=== PATIENT | male | born 1995 | race Caucasian/White ===

== ENCOUNTER 2021-01-05 01:41 | Emergency (ER) | payer OTHER, SELFPAY ==
[2021-01-05 01:43] VITALS: BP 134/93; PULSE 65; RESP 16; TEMP 36.6; O2SAT 100; BMI 19.5
--- NOTE | 2021-01-05 02:33 | HMH.EDEYEP ---
ED Disposition Clinical Impression: UV keratitis Qualifiers: Laterality: bilateral Qualified Code(s): H16.133 - Photokeratitis, bilateral Disposition: Home, Self-Care Condition on Discharge: Good Instructions: DI for Eye Flash Burn Additional Instructions: see dr trinidad this am Referrals: Provider,Referral, [Primary Care Provider] - - Critical Care Critical Care Time: No Attestation: On 01/05/21, the high probability of a clinically significant, sudden or life threatening deterioration of the following system(s) required my full and direct attention, intervention and personal management. The time I documented below is in addition to time spent performing reported procedures but includes the following listed in this critical care notation. Medical Decision Making - Medical Records Medical records reviewed: Yes: I reviewed the patient's medical records. - Thom Inquiry Pt receiving controlled substance: No Vital Signs: 01/05/21 01:43 Temperature 97.9 F Temperature Source Oral Pulse Rate [Right] 65 Respiratory Rate 16 Blood Pressure [Right Arm] 134/93 H Blood Pressure Mean [Right Arm] 106 02 Sat by Pulse Oximetry 100 Orders (Tests/Meds): ED MEDICATIONS Discontinued Medications Generic Name Dose Route Start Last Admin Trade Name Freq PRN Reason Stop Dose Admin Acetaminophen/Codeine Phosphate 1 meseret 01/05/21 02:31 Acetaminophen 300mg W/Codeine 30mg Take Home Pack (6) PO 01/05/21 02:32 ONCE ONE Gentamicin Sulfate 1 ml 01/05/21 02:31 Gentamicin 0.3% Opth Jigna 5ml OP 01/05/21 02:32 ONCE ONE Tetracaine HCl 2 ml 01/05/21 01:57 01/05/21 02:02 Tetracaine 0.5% Opth Jigna 15ml OP 01/05/21 01:58 Not Given ONCE ONE Tetracaine HCl 2 ml 01/05/21 02:00 01/05/21 02:02 Tetracaine 0.5% Opth Jigna 15ml OP 01/05/21 02:01 2 ml ONCE ONE Administration Medical Decision Narrative: pt will see eye center this am Eye Problem HPI - General Chief complaint: Eye Problems Stated complaint: AO 01/04/21 7-3 Flash burn to eyes Time Seen by Provider: 01/05/21 02:00 Mode of Arrival: Wheelchair Source of Information: Patient, Significant Other, Medical Record Limitations: No Limitations Description of Symptoms (Recalled from ER Triage Doc. 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 and thinks he has flash burn to both eyes pt denies any blurring vision - History of Present Illness HPI Narrative: bilat eye pain after welding today - MD chief complaint: eye pain Onset (ago): hour(s) Onset description: gradual Location: both eyes Eye Symptoms: pain Place: work Mechanism: UV exposure Severity: moderate Treatments Prior to Arrival: none - Related Data Home Medications Medication Instructions Recorded Confirmed No Known Home Medications 04/29/19 01/05/21 Allergies Allergy/AdvReac Type Severity Reaction Status Date / Time No Known Allergies Allergy Verified 01/05/21 01:58 [facility] History - Hepatitis A Screen Drug use history?: No High risk sexual behaviors?: No History of sexually transmitted infection?: No Currently employed?: No Childcare worker?: No Do you have indoor plumbing?: Yes Do you have electricity?: Yes Attestation statement:: This patient has been screened for Hepatitis A risk factors. I have reviewed the patient's past medical history: Yes Other Surgeries: Yes: No Previous Surgery - Social History Smoking Status: Never smoker Tobacco Type: smokeless tobacco # Packs/Day (cigarettes): 0 Alcohol Intake: never Occupational Status: employed ROS Obtained: Yes All systems reviewed & no additional complaints - Constitutional Constitutional: Denies fever(s) - Eyes Eyes: Reports as per HPI, Reports sensitivity to light, Reports eye pain - ENT Ears, Nose, Mouth, and Throat: Denies facial pain - Cardiovascular Cardiovascular: Denies chest pain - Respiratory Respiratory: Denies cough - Gastrointestinal Gastrointes
[2021-01-05 02:40] VITALS: BP 122/69; PULSE 68; RESP 17; TEMP 36.8; O2SAT 99
== END 2021-01-05 02:44 | disposition home or self-care (01) ==
PROVIDERS: Emergency Provider Emergency Medicine
DX: H16.133 Photokeratitis, bilateral (principal); W89.8XXA Exposure to other man-made visible and ultraviolet light, initial encounter; Y92.63 Factory as the place of occurrence of the external cause; Y99.0 Civilian activity done for income or pay
CPT/HCPCS: 99281

== ENCOUNTER 2021-07-04 17:46 | Emergency (ER) | payer OTHER, SELFPAY ==
[2021-07-04 19:00] VITALS: BP 109/70; PULSE 72; RESP 18; TEMP 37; O2SAT 97; BMI 18.8
[2021-07-04 19:13] LABS: UTC Strep Screen (Rapid) Positive (Negative)
--- NOTE | 2021-07-04 19:37 | HMH.EDUTC ---
[facility] Disposition Clinical Impression: Strep throat Disposition: Home, Self-Care Condition on Discharge: Good Instructions: Strep Throat, DI for Strep Throat Additional Instructions: *Monitor Temp, Over the counter Motrin or Tylenol as directed/as needed Tylenol every 4 hours and Motrin every 6 hours (as long as your family doctor has told you that you can take it) for fever or pain. and straight to ER if unable to lower temp less than 101.0 after medication given *Warm salt water gargles may help to soothe the throat *Throat Lozenges *Warm fluids like tea with honey may help to soothe the throat *Sleep elevated *Humidifier/Vaporizer *change toothbrush and toothpaste 24-48 hours after starting to take antibiotics so you do not reinfect yourself Monitor Temp. Tylenol and/or Ibuprofen as needed. ER if fever is no less than 101 despite alternating Tylenol and Ibuprofen * Encourage fluids, water, Gatorade, powerade, pedialyte if infant/toddler/or child *Cold fluids, popsicles and ice cream may feel good on his throat Follow up IMMEDIATELY for new or worsening symptoms or no Noticeable improvement over the next 48-72 hours. 911 for difficulty breathing or swallowing Referrals: Provider,Referral, MD [Primary Care Provider] - As needed Forms: Work/School Release Medical Decision Making - Thom Inquiry Pt receiving controlled substance: No Thom was queried for this patient: No Vital Signs: 07/04/21 19:00 07/04/21 19:50 Temperature 98.6 F 98.6 F Temperature Source Oral Pulse Rate 72 Pulse Rate [Left Brachial] 72 Respiratory Rate 18 18 Blood Pressure 109/70 L Blood Pressure [Left Arm] 109/70 L Blood Pressure Mean [Left Arm] 83 Blood Pressure Source [Left Arm] Automatic Cuff Blood Pressure Position [Left Arm] Sitting 02 Sat by Pulse Oximetry 97 Oxygen Delivery Method Room Air - Lab Data Lab results reviewed: Yes: I reviewed the patient's lab results. Lab Results 07/04/21 19:13: Strep Scn Rapid Clinic Positive A Orders (Tests/Meds): ED MEDICATIONS Discontinued Medications Generic Name Dose Route Start Last Admin Trade Name Freq PRN Reason Stop Dose Admin Penicillin G Benzathine 1,200,000 unit 07/04/21 19:41 07/04/21 19:47 Penicillin G Benzathine 1,200,000 Units/2ml Syringe IM 07/04/21 19:42 1,200,000 unit ONCE ONE Administration [facility] HPI - General Stated complaint: sore throat headache nausea Time Seen by Provider: 07/04/21 19:37 Mode of Arrival: Ambulatory Source of Information: Patient Limitations: No Limitations Description of Symptoms (Recalled from Triage Doc. by RN): PATIENT C/O HEADACHE, SORE THROAT, AND STOMACH ACHE SINCE YESTERDAY HEENT Symptoms (Recalled from RN notes): Yes Resp Symptoms (Recalled from RN notes): No Skin Symptoms (Recalled from RN notes): No MS Symptoms (Recalled from RN notes): No Functional Status (Recalled from RN notes): WNL - History of Present Illness Provider Complaint: Patient state that he has been having sore throat, headache, upset stomache and over all not feeling well States that he feels like he may have strep throat so he came in to get checked - Related Data Home Medications Medication Instructions Recorded Confirmed No Known Home Medications 04/29/19 07/04/21 Allergies Allergy/AdvReac Type Severity Reaction Status Date / Time No Known Allergies Allergy Verified 01/05/21 01:58 - Worker's Comp Is this a Worker's Comp case?: No [facility] History - Hepatitis A Screen Drug use history?: No High risk sexual behaviors?: No History of sexually transmitted infection?: No Currently employed?: No Childcare worker?: No Do you have indoor plumbing?: Yes Do you have electricity?: Yes Attestation statement:: This patient has been screened for Hepatitis A risk factors. I have reviewed the patient's past medical history: Yes Other Surgeries: Yes: No Previous Surgery - Social History Smoking Status: [place]
[2021-07-04 19:50] VITALS: BP 109/70; PULSE 72; RESP 18; TEMP 37; O2SAT 97
== END 2021-07-04 20:07 | disposition home or self-care (01) ==
PROVIDERS: Emergency Provider Nurse Practitioner
DX: J02.9 Acute pharyngitis, unspecified (principal); Z88.0 Allergy status to penicillin
CPT/HCPCS: 87880; 96372; 99202; G0463; J0561

== ENCOUNTER 2021-12-05 02:01 | Emergency (ER) | payer OTHER, SELFPAY ==
[2021-12-05 02:02] VITALS: BP 122/81; PULSE 58; RESP 16; TEMP 36.4; O2SAT 100; BMI 21.7
--- NOTE | 2021-12-05 02:16 | PC.NURSE ---
EYE BOX AND MONTERO LAMP TO BEDSIDE.
--- NOTE | 2021-12-05 03:27 | HMH.EDEYEP ---
ED Disposition Clinical Impression: Welders' keratitis of both eyes Disposition: Home, Self-Care Condition on Discharge: Good Instructions: DI for Eye Flash Burn Additional Instructions: see dr amos wu - [phone] Referrals: Provider,Referral, [Primary Care Provider] - - Critical Care Critical Care Time: No Attestation: On 12/05/21, the high probability of a clinically significant, sudden or life threatening deterioration of the following system(s) required my full and direct attention, intervention and personal management. The time I documented below is in addition to time spent performing reported procedures but includes the following listed in this critical care notation. Medical Decision Making - Medical Records Medical records reviewed: Yes: I reviewed the patient's medical records. 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 work chief complaint: eye pain Onset (ago): hour(s) Onset description: gradual Location: both eyes Eye Symptoms: photophobia Place: work Mechanism: UV exposure Severity: moderate Treatments Prior to Arrival: none - Related Data Patient tetanus UTD: Yes Home Medications Medication Instructions Recorded Confirmed No Known Home Medications 04/29/19 12/05/21 Allergies Allergy/AdvReac Type Severity Reaction Status Date / Time No Known Allergies Allergy Verified 01/05/21 01:58 [facility] History - Hepatitis A Screen Attestation statement:: This patient has been screened for Hepatitis A risk factors. I have reviewed the patient's past medical history: Yes Other Surgeries: Yes: No Previous Surgery - Social History Smoking Status: Never smoker Tobacco Type: smokeless tobacco # Packs/Day (cigarettes): 0 Alcohol Intake: never Occupational Status: employed ROS Obtained: Yes All systems reviewed & no additional complaints - Constitutional Constitutional: Denies fever(s) - Eyes Eyes: Reports as per HPI, Denies change in vision, Reports sensitivity to light - ENT Ears, Nose, Mouth, and Throat: Denies sore throat - Cardiovascular Cardiovascular: Denies chest pain - Respiratory Respiratory: Denies cough - Gastrointestinal Gastrointestingal: Denies: vomiting - Genitourinary Male Genitourinary: Denies hematuria - Musculoskeletal Musculoskeletal: Denies joint pain - Integumentary/Breasts Skin/Breast: Denies rash - Neurologic Neurologic: Denies focal weakness, Denies seizure-like activity Physical Exam - General General appearance: alert - Head Head exam: normocephalic - Eye Eye exam: Present: PERRL, EOMI, other (neg fluro stain ) - ENT ENT exam: Present: mucous membranes moist - Neck Neck exam: Present: trachea midline - Respiratory Respiratory exam: Absent: respiratory distress - Cardiovascular Cardiovascular exam: Present: regular rate - Abdominal Exam Abdominal exam: Present: soft - Extremities Exam Extremities exam: Present: full ROM - Neurological Exam Neurological exam: Present: alert, CN II-XII intact - Skin Skin exam: Absent: rash
[2021-12-05 03:51] VITALS: BP 122/94; PULSE 58; RESP 16; TEMP 36.4; O2SAT 100
== END 2021-12-05 03:54 | disposition home or self-care (01) ==
PROVIDERS: Emergency Provider Emergency Medicine
DX: H16.133 Photokeratitis, bilateral (principal); W89.8XXA Exposure to other man-made visible and ultraviolet light, initial encounter; Y92.63 Factory as the place of occurrence of the external cause; Y99.0 Civilian activity done for income or pay
CPT/HCPCS: 99283

== ENCOUNTER 2022-04-15 18:49 | Emergency (ER) | payer OTHER, SELFPAY ==
[2022-04-15 19:30] VITALS: BP 124/62; PULSE 62; RESP 20; TEMP 37.1; O2SAT 99; BMI 19.5
--- NOTE | 2022-04-15 19:57 | EXP.UTC ---
Discharge Plan Disposition Patient Disposition: Home, Self-Care Condition: Good Prescriptions Prescriptions: New methocarbamol 500 mg tablet 500 mg PO TID PRN (Reason: muscle spasm) Qty: 10 0RF etodolac 200 mg capsule 200 mg PO Q8H PRN (Reason: pain) Qty: 12 0RF Referrals Follow up/Referrals: Provider,Referral, MD [Primary Care Provider] - See instructions Activity Restrictions/Add. Instructions Additional Instructions/Restrictions: *Etodolac marina 8 hours with meal as needed for pain/inflammation *Remember you had a Toradol shot in the clinic today, which is similar to Motrin do not take any tonight *Not additional anti-inflammatory like Ibuprofen motrin, aleve, advil with the above amount of Etodolac. You can still take Tylenol every 4 hours as needed if you need something else for pain *Ice 20 minutes every 2 hours for the first 48 hours after the initial injury followed by moist heat every 20 minutes 3-4 times a day to affected area *Muscle relaxer every 8 hours as needed for muscle spasms but remember, it WILL cause drowsiness You cannot take it and drive, operate machinery or care for small children. *Keep this area active, no movement leads to more stiffness, However take it easy and avoid heavy lifting pushing or pulling *Follow up with you family doctor if no improvement for further treatment Clinical Impressions Clinical Impression: Low back pain Stand Alone Forms Stand Alone Forms: Work/School Release Instructions Patient Instructions: Low Back Pain Discharge ED Provider: Kay Urias [facility] General Stated complaint: back pain Mode of Arrival: Ambulatory Source of Information: Patient Limitations: No Limitations Time Seen by Provider: 04/15/22 19:57 Description of Symptoms (Recalled from Triage Doc. by RN): PATIENT C/O LOWER BACK PAIN THAT STARTED FRIDAY. NO KNOWN INJURY HEENT Symptoms (Recalled from RN notes): No Resp Symptoms (Recalled from RN notes): No Skin Symptoms (Recalled from RN notes): No MS Symptoms (Recalled from RN notes): Yes Functional Status (Recalled from RN notes): WNL History of Present Illness Provider Complaint: Patient states that he does alot of pulling and tugging at work States that on friday he started having some pain in his lower back area that was worse with movement Denies known injury and denies falling Denies loss of control of bowel or bladder State sthat area feels tight and achy when he moves around or tries to bend or stand Denies radiation of pain Related Data Previous Rx's Medication Instructions Recorded etodolac 200 mg capsule 200 mg PO Q8H PRN pain #12 caps 04/15/22 methocarbamol 500 mg tablet 500 mg PO TID PRN muscle spasm #10 04/15/22 tabs Allergies Allergy/AdvReac Type Severity Reaction Status Date / Time No Known Allergies Allergy Verified 01/05/21 01:58 Worker's Comp Is this a Worker's Comp case?: No [facility] Medical History (Updated 04/15/22 @ 20:08 by Kay Urias APRN) No significant past medical history Social History Smoking Status: Never smoker alcohol intake: never current occupational status: employed Travel in the last 8 weeks: None ROS Obtained: Yes All systems reviewed & no additional complaints except as documented and Yes Systems reviewed as appropriate & no additional complaints except as documented Constitutional Constitutional: Reports system reviewed and no additional complaints, except as documented, Reports as per HPI and Denies fever(s) ENT Ears, Nose, Mouth, and Throat: Reports system reviewed and no additional complaints, except as documented and Reports as per HPI Cardiovascular Cardiovascular: Reports system reviewed and no additional complaints, except as documented and Reports as per HPI Respiratory Respiratory: Reports system reviewed and no additional complaints, except as documented and Reports as per HPI Gastrointestinal Ga
[2022-04-15 20:22] VITALS: BP 124/62; PULSE 62; RESP 20; TEMP 37.1; O2SAT 99
== END 2022-04-15 20:39 | disposition home or self-care (01) ==
PROVIDERS: Emergency Provider Nurse Practitioner
DX: M54.50 Low back pain, unspecified (principal); M62.838 Other muscle spasm
CPT/HCPCS: 96372; 99213; G0463

== ENCOUNTER → 2022-09-11 16:05 | Outpatient (CLI) | payer OTHER, SELFPAY ==
--- NOTE | 2022-09-11 16:10 | XR_ITS ---
FINAL REPORT CLINICAL HISTORY: abd pain for 1-2 weeks, abd burning COMPARISON: None FINDINGS: Chest: The heart and mediastinal within normal limits. The lungs are clear. There is no pneumothorax. Osseous structures are unremarkable. Abdomen: Three views of the abdomen were obtained. There is a nonobstructive bowel gas pattern. There is a moderate to large amount of retained stool. IMPRESSION: No acute cardiopulmonary process. Nonobstructive bowel gas pattern with a moderate to large amount of retained stool. Reviewed, Interpreted and Dictated by Donnie Woods III, MD Transcribed by Earnestine Forrester Authenticated and [facility]
== END ==
PROVIDERS: Visit Provider Nurse Practitioner Family
DX: R10.9 Unspecified abdominal pain (principal)
CPT/HCPCS: 74021

== ENCOUNTER 2023-08-09 10:34 | Emergency (ER) | payer BC, SELFPAY ==
[2023-08-09 10:40] VITALS: BP 119/75; PULSE 63; RESP 19; TEMP 36.7; O2SAT 99
--- NOTE | 2023-08-09 10:50 | EXP.UTC ---
Discharge Plan Disposition Patient Disposition: Home, Self-Care Condition: Good Prescriptions Prescriptions: New amoxicillin-pot clavulanate 875-125 mg Tablet 1 tab PO Q12H Qty: 20 0RF ibuprofen 600 mg tablet 600 mg PO Q6HP PRN (Reason: Moderate Pain) Qty: 20 0RF Referrals Follow up/Referrals: Provider,Referral, MD [Primary Care Provider] - See instructions Activity Restrictions/Add. Instructions Additional Instructions/Restrictions: Call Dentist and make appointment as soon as possible may take several weeks to get in Take medication as prescribed Follow up as directed Clinical Impressions Clinical Impression: Dental infection Instructions Patient Instructions: Tooth Abscess, DI for Tooth Abscess, Amoxicillin and Clavulanic Acid Discharge ED Provider: Kay Urias [facility] General Stated complaint: tooth pain Mode of Arrival: Ambulatory Source of Information: Patient Limitations: No Limitations Time Seen by Provider: 08/09/23 10:50 Description of Symptoms (Recalled from Triage Doc. by RN): PATIENT C/O ABSCESS TO TOP RIGHT TOOTH X 2 DAYS HEENT Symptoms (Recalled from RN notes): Yes Resp Symptoms (Recalled from RN notes): No Skin Symptoms (Recalled from RN notes): No MS Symptoms (Recalled from RN notes): No Functional Status (Recalled from RN notes): WNL History of Present Illness Provider Complaint: Patient states that he has several broken and decaying teeth on his right top States that for the last couple of days he has been having pain and swelling in his gums thinks it may be infected so today he came in to get it checked Related Data Previous Rx's Medication Instructions Recorded amoxicillin 875 mg-potassium 1 tab PO Q12H #20 tabs 08/09/23 clavulanate 125 mg tablet ibuprofen 600 mg tablet 600 mg PO Q6HP PRN Moderate Pain 08/09/23 #20 tabs Allergies Allergy/AdvReac Type Severity Reaction Status Date / Time No Known Allergies Allergy Verified 09/11/22 15:32 Worker's Comp Is this a Worker's Comp case?: No [facility] Disclaimer: The information contained in this section may have been updated after the patient was seen, as this information can be updated by other users. Medical History (Updated 08/09/23 @ 10:54 by Kay Urias APRN) Left shoulder strain Low back pain No significant past medical history Strep throat Tooth abscess UV keratitis Welders' keratitis of both eyes Surgical History (Updated 08/09/23 @ 10:50 by Francia Richard RN) History of tonsillectomy Social History Smoking Status: Never smoker alcohol intake: never current occupational status: employed Travel in the last 8 weeks: None ROS Obtained: Yes All systems reviewed & no additional complaints except as documented and Yes Systems reviewed as appropriate & no additional complaints except as documented ENT Ears, Nose, Mouth, and Throat: Reports system reviewed and no additional complaints, except as documented, Reports as per HPI and Reports dental pain Cardiovascular Cardiovascular: Reports system reviewed and no additional complaints, except as documented and Reports as per HPI Respiratory Respiratory: Reports system reviewed and no additional complaints, except as documented and Reports as per HPI Gastrointestinal Gastrointestingal: Reports system reviewed and no additional complaints, except as documented and as per HPI Musculoskeletal Musculoskeletal: Reports system reviewed and no additional complaints, except as documented and Reports as per HPI Physical Exam General General appearance: alert and in no apparent distress ENT ENT exam: Present mucous membranes moist Expanded ENT Exam Teeth exam: Present dental caries, fractured tooth # and gingival swelling Respiratory Respiratory exam: Present normal lung sounds bilaterally; Absent respiratory distress or wheezes Cardiovascular Cardiovascular exam: Present regular rate, normal rhythm and normal heart sounds Neurological Exam Neurological exam: Present alert, oriented X3 and normal gait Medical Decision Making Thom Inquiry Pt receiving controlled substance: No Thom was queried for this patient: No Vital Signs: 08/09/23 10:40 Temperature 98.0 F Temperature Source Oral Pulse Rate [Left Brachial] 63 Respiratory Rate 19 Blood Pressure [Left Arm] 119/75 Blood Pressure Mean [Left Arm] 89 Blood Pressure Source [Left Arm] Automatic Cuff Blood Pressure Position [Left Arm] Sitting 02 Sat by Pulse Oximetry 99 Oxygen Delivery Method Room Air
[2023-08-09 10:54] VITALS: BP 119/75; PULSE 63; RESP 19; TEMP 36.7; O2SAT 99
== END 2023-08-09 10:56 | disposition home or self-care (01) ==
PROVIDERS: Emergency Provider Nurse Practitioner
DX: K04.7 Periapical abscess without sinus (principal)
CPT/HCPCS: 99212; 99214; G0463

== ENCOUNTER 2023-08-19 00:54 | Emergency (ER) | payer BC, SELFPAY ==
[2023-08-19 01:01] VITALS: BP 120/79; PULSE 63; RESP 17; TEMP 36.8; O2SAT 98; BMI 19.5
[2023-08-19] MEDS: LIDOCAINE 2% VISCOUS SOL 15ML UDC 15 ML PO (01:12)
[2023-08-19] MEDS: TETRACAINE/BENZOCAINE/BUTAMBEN 56 GM SPRAY TP (01:13)
--- NOTE | 2023-08-19 01:24 | HMH.EDGENADL ---
Discharge Plan Disposition Patient Disposition: Home, Self-Care Condition: Good Prescriptions Prescriptions: New clindamycin HCl 150 mg capsule 450 mg PO TID 7 Days Qty: 63 0RF No Action amoxicillin-pot clavulanate 875-125 mg Tablet 1 tab PO Q12H Qty: 20 0RF ibuprofen 600 mg tablet 600 mg PO Q6HP PRN (Reason: Moderate Pain) Qty: 20 0RF Referrals Follow up/Referrals: Provider,Referral, MD [Primary Care Provider] - See instructions Activity Restrictions/Add. Instructions Additional Instructions/Restrictions: You were evaluated in the ER for dental pain. Stop taking the amoxicillin antibiotic and start taking the clindamycin that was prescribed. Use the provided dental balls if needed for pain. Do not eat or drink with these in, do not sleep with these in. Once you feel the numbing effects of the dental balls, please remove them. Please make an appointment with a dentist to soon as possible. As discussed, in [place] has a walk-in dental clinic for dental pain if you are unable to get in anywhere else. Their information is below. dental clinic: Clinic registration is open?7:45 - 10:30 a.m., Friday through Friday. Patients are seen on a first-come, first-served basis and may experience wait times. Services are only available for a select number of patients each day. Their clinic is closed on August 20, August 22, August 27, August 28 You can find their clinic on [employer] by searching dental urgent care. Continue taking the previously prescribed ibuprofen as well. Make an appointment with your primary care physician for reevaluation in a few days. Return to the ER with any new, worsening, or otherwise concerning symptoms. Clinical Impressions Clinical Impression: Dental infection, Dental caries, Fracture of tooth Discharge ED Provider: Sintia Soni General Adult [facility] General Chief complaint: Dental/Oral Stated complaint: tooth pain Time Seen by Provider: 08/19/23 00:58 Mode of Arrival: Family Vehicle Source of Information: Patient Limitations: No Limitations Description of Symptoms (Recalled from ER Triage Doc. by RN): 28 yo male presents with CC of right side dental pain. Patient is being treated for right side dental pain and finishing amoxicillin and ibuprofen previously prescribed. Afebrile. Utilizing tylenol at home as well, mouth wash, not getting any relief. trying to see dentist tomorrow. History of Present Illness HPI narrative: This otherwise healthy 28-year-old male presents to the ER with concerns of right-sided dental pain. He has been treated by the urgent care for similar complaints. He is trying to get into a dentist tomorrow but has not seen a dentist in a long time. He knows he has multiple fractured teeth as well as dental cavities. He states he has been taking the previously prescribed Augmentin and ibuprofen as directed but started having worsening pain again tonight. He denies any difficulty swallowing, swelling of the floor of the mouth, difficulty breathing, fevers, or other associated symptoms at this time. Related Data Previous Rx's Medication Instructions Recorded amoxicillin 875 mg-potassium 1 tab PO Q12H #20 tabs 08/09/23 clavulanate 125 mg tablet ibuprofen 600 mg tablet 600 mg PO Q6HP PRN Moderate Pain 08/09/23 #20 tabs clindamycin HCl 150 mg capsule 450 mg PO TID 7 days #63 caps 08/19/23 Allergies Allergy/AdvReac Type Severity Reaction Status Date / Time No Known Allergies Allergy Verified 09/11/22 15:32 [facility] Disclaimer: The information contained in this section may have been updated after the patient was seen, as this information can be updated by other users. 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 Surgical History (Updated 08/09/23 @ 10:50 by Francia Richard RN) History of tonsillectomy Social History Smoking Status: Unknown if ever smoked alcohol intake: never current occupational status: employed Travel in the last 8 weeks: None ROS Obtained: Yes All systems reviewed & no additional complaints except as documented Constitutional Constitutional: Denies chills, Denies fever(s), Denies headache(s) and Denies weakness Eyes Eyes: Denies change in vision ENT Ears, Nose, Mouth, and Throat: Reports dental pain, Denies dizziness, Denies dysphagia, Denies headache(s), Denies nasal congestion, Denies sore throat, Denies throat swelling and Denies tongue swelling Cardiovascular Cardiovascular: Denies chest pain, Denies dyspnea and Denies leg edema Respiratory Respiratory: Denies cough and Denies dyspnea Gastrointestinal Gastrointestingal: Denies constipation, diarrhea, dysphagia, nausea or vomiting Genitourinary Male Genitourinary: Denies difficulty urinating Musculoskeletal Musculoskeletal: Denies arthralgias, Denies myalgias, Denies numbness and Denies tingling Integumentary/Breasts Skin/Breast: Denies change in pigmentation Neurologic Neurologic: Denies dizziness, Denies headache(s), Denies numbness, Denies tingling and Denies weakness Allergic/Immunologic Allergic/Immunologic: Denies throat swelling and Denies tongue swelling Physical Exam General General appearance: alert and in no apparent distress Head Head exam: atraumatic and normocephalic Eye Eye exam: Present PERRL and EOMI ENT ENT exam: Present mucous membranes moist and other (Right-sided maxillary and mandibular gingival swelling and erythema. No findings of abscess. Multiple fractured teeth, dental caries, poor dentition, no findings of submandibular swelling or erythema, no stridor, no elevation of the tongue) Neck Neck exam: Present normal inspection and full ROM; Absent lymphadenopathy Chest Chest inspection: Present symmetric chest wall rise Respiratory Respiratory exam: Absent respiratory distress or stridor Cardiovascular Cardiovascular exam: Present regular rate and normal rhythm Extremities Exam Extremities exam: Present full ROM Neurological Exam Neurological exam: Present alert and oriented X3; Absent motor sensory deficit Psychiatric Psychiatric exam: Present normal affect and normal mood Skin Skin exam: Present warm and dry Medical Decision Making Thom Inquiry Pt receiving controlled substance: No Vital Signs: 08/19/23 01:01 Temperature 98.2 F Temperature Source Oral Pulse Rate [Right Brachial] 63 Respiratory Rate 17 Blood Pressure [Right Arm] 120/79 Blood Pressure Mean [Right Arm] 92 Blood Pressure Source [Right Arm] Automatic Cuff Blood Pressure Position [Right Arm] Sitting 02 Sat by Pulse Oximetry 98 Oxygen Delivery Method Room Air Orders (Tests/Meds): ED MEDICATIONS Generic Name Dose Route Start Last Admin Trade Name Freq PRN Reason Stop Dose Admin Oxycodone HCl 5 mg 08/19/23 01:18 Oxycodone 5mg Immediate Release Tablet PO 08/19/23 01:19 Q4HP ONE Discontinued Medications Generic Name Dose Route Start Last Admin Trade Name Freq PRN Reason Stop Dose Admin Benzocaine/Butamben/Tetracaine HCl 1 gm 08/19/23 01:04 08/19/23 01:13 Tetracaine/Benzocaine/Butamben 56 Gm [place] TP 08/19/23 01:05 1 gm ONCE ONE Administration Lidocaine HCl 15 ml 08/19/23 01:04 08/19/23 01:12 Lidocaine 2% Viscous Jigna 15ml Udc PO 08/19/23 01:05 15 ml ONCE ONE Administration Medical Decision Narrative: In summary this otherwise healthy 28-year-old male presents to the ER with concerns of dental pain. Review of recent records demonstrates patient was seen in the urgent care and prescribed Augmentin and ibuprofen. He has been taking these as directed. Patient has right-sided upper and lower dental pain. On evaluation patient is hemodynamically stable, afebrile, he has multiple dental fractures, dental caries, poor dentition. He has gingival inflammation without obvious abscess. No swelling under the jaw, no erythema, no findings of Ludewig's angina though this was on my differential. Other differential included dental abscess, other dental infection, fractured tooth. I reviewed patient's prescriptions and instructed him to stop taking the previously prescribed Augmentin and instructed him to start taking clindamycin given he still has findings of infection with swollen, erythematous gingiva. I also gave him information on the walk-in clinic for dentistry if he is unable to make any other appointments with a dentist in this area. Patient received 1 dose of oral oxycodone in the ER for acute pain management. He will not be prescribed any narcotics. He did receive dental balls and was given instructions on further use of these. Patient was given instructions on symptomatic management, follow up instructions, and return precautions for the emergency department. Patient indicated understanding and was discharged in stable condition. Critical Care Critical Care Time Critical Care Time: No
[2023-08-19] MEDS: OXYCODONE 5MG IMMEDIATE RELEASE TABLET 5 MG PO (01:30)
[2023-08-19 01:33] VITALS: BP 138/71; PULSE 77; RESP 18; TEMP 36.8; O2SAT 97
== END 2023-08-19 01:34 | disposition home or self-care (01) ==
PROVIDERS: Emergency Provider Emergency Medicine
DX: S02.5XXA Fracture of tooth (traumatic), initial encounter for closed fracture (principal); G50.1 Atypical facial pain; X58.XXXA Exposure to other specified factors, initial encounter
CPT/HCPCS: 99283

== ENCOUNTER 2023-11-10 19:10 | Emergency (ER) | payer BC, SELFPAY ==
[2023-11-10] VITALS (7 sets, daily range): BP systolic 120–140; BP diastolic 75–85; PULSE 77–138; RESP 11–18; TEMP 36.6; O2SAT 98–100; BMI 19.5
--- NOTE | 2023-11-10 19:10 | ECG_ITS ---
APPROVED REPORT Exam: Resting ECG HR:118 bpm ECG Measurements Heart Rate 118 AXES QRSd 99 QRS 82 QT 407 T 81 QTc 477 Conclusion sinus tachycardia POSSIBLE RIGHT VENTRICULAR CONDUCTION DELAY [RSR (QR) IN V1/V2] NONSPECIFIC T-WAVE ABNORMALITY Electronically signed by : TYRONE EDOUARD, 11/10/2023 23:55:42
--- NOTE | 2023-11-10 19:15 | XR_ITS ---
PROCEDURE INFORMATION: Exam: XR Chest Exam date and time: 11/10/2023 7:28 PM Age: 28 years old Clinical indication: Shortness of breath; Additional info: Palpitations/soa TECHNIQUE: Imaging protocol: Radiologic exam of the chest. Views: 1 view. COMPARISON: No relevant prior studies available. FINDINGS: Lungs: Unremarkable. No consolidation. Pleural spaces: Unremarkable. No pleural effusion. No pneumothorax. Heart/Mediastinum: Unremarkable. No cardiomegaly. Bones/joints: Unremarkable. IMPRESSION: No acute findings.
[2023-11-10 19:25] LABS: Basophils # 0.1 K/mm3 (0-0.2); Eosinophils # 0.5 K/mm3 (0.0-0.4); Eosinophils % 3.5 % (0.1-12.0); Hematocrit 44.5 % (42.0-52.0); Lymphocytes # 3.1 K/mm3 (0.7-4.5); Lymphocytes % 23.6 % (10-50); Mean Corpuscular HGB Conc 33.6 g/dL (31.8-35.4); Mean Corpuscular Hemoglobin 29.8 pg (27.0-31.2); Mean Corpuscular Volume 88.6 fl (80-94); Mean Platelet Volume 8.3 fl (7.4-10.4); Monocytes # 0.7 K/mm3 (0.1-1.0); Monocytes % 5.1 % (1.7-9.3); Neutrophils # 8.7 K/mm3 (1.8-7.8); Neutrophils % 66.8 % (37.0-80.0); Platelet Count 350 K/mm3 (142-424); Red Blood Count 5.02 M/mm3 (4.60-6.20); Red Cell Distribution Width 13.2 % (11.5-17.5); White Blood Count 12.9 K/mm3 (4.8-10.8)
--- NOTE | 2023-11-10 19:28 | ED_ITS ---
Discharge Plan Disposition Patient Disposition: Home, Self-Care Condition: Good Prescriptions Prescriptions: New hydroxyzine HCl 25 mg tablet 25 mg PO Q8H PRN (Reason: panic attack(s)) Qty: 20 0RF No Action clindamycin HCl 150 mg capsule 450 mg PO TID 7 Days Qty: 63 0RF amoxicillin-pot clavulanate 875-125 mg Tablet 1 tab PO Q12H Qty: 20 0RF ibuprofen 600 mg tablet 600 mg PO Q6HP PRN (Reason: Moderate Pain) Qty: 20 0RF Referrals Follow up/Referrals: Provider,MD Renee [Primary Care Provider] - See instructions Demetrius Shah MD [Staff Physician] - See instructions Activity Restrictions/Add. Instructions Additional Instructions/Restrictions: You were evaluated in the emergency department today. Please follow-up closely with a primary care provider. Make sure that you are staying hydrated. I prescribed you hydroxyzine to take as needed for anxiety/panic attacks. Return to the emergency department for new or worsening symptoms. Clinical Impressions Clinical Impression: Anxiety, Palpitations, Hypomagnesemia, Hypokalemia Instructions Patient Instructions: DI for Anxiety -- Adult, DI for Palpitations Discharge ED Provider: Love Valentin HPI General Chief Complaint: Chest Pain Stated Complaint: Chest pain Time Seen by Provider: 11/10/23 19:12 Mode of Arrival: Ambulatory Source of Information: Patient Limitations: No Limitations Description of Symptoms (Recalled from ER Triage Doc. by RN): pt presents to ed with complaints of heart racing lasting for the past 15 mins states it is hard to breath and that he has nausea. Pt states this has been going on and off for the past week. History of Present Illness HPI narrative: This patient is a 28-year-old male presenting to the emergency department for evaluation with concern for palpitations. He states that this is intermittently been going on. He had an initial episode Friday 6 days ago, at which point he felt palpitations, shortness of breath, and nausea. This had resolved, but it started again 15 minutes ago. He does state that he has been dealing with a lot of anxiety. He denies any fevers, chills, chest pain, abdominal pain, vomiting, changes in bowel movements, or other concerns. He denies any changes in oral intake, alcohol use, changes in activity, or changes in caffeine use. He notes he has been staying hydrated. I did review patient's medical records and noted that he has been seen a few times back in July for dental infection, which she states he never followed up with a dentist for. He states he has been doing okay without issues in his mouth, however. Related Data Previous Rx's Medication Instructions Recorded amoxicillin 875 mg-potassium 1 tab PO Q12H #20 tabs 08/09/23 clavulanate 125 mg tablet ibuprofen 600 mg tablet 600 mg PO Q6HP PRN Moderate Pain 08/09/23 #20 tabs clindamycin HCl 150 mg capsule 450 mg (3 x 150 mg) PO TID 7 days 08/19/23 #63 caps hydroxyzine HCl 25 mg tablet 25 mg PO Q8H PRN panic attack(s) 11/10/23 #20 tabs Allergies Allergy/AdvReac Type Severity Reaction Status Date / Time No Known Allergies Allergy Verified 09/11/22 15:32 [facility] Disclaimer: The information contained in this section may have been updated after the patient was seen, as this information can be updated by other users. Medical History Low back pain No significant past medical history Welders' keratitis of both eyes Strep throat UV keratitis Left shoulder strain Tooth abscess Surgical History History of tonsillectomy Social History Smoking Status: Never smoker alcohol intake: never current occupational status: employed Travel in the last 8 weeks: None ROS Obtained: Yes All systems reviewed & no additional complaints except as documented Physical Exam General General appearance: alert and in no apparent distress Comment: Well-appearing Head Head exam: atraumatic and normocephalic Eye Eye exam: Present normal appearance, PERRL and EOMI ENT ENT exam: Present normal exam, normal oropharynx, mucous membranes moist and normal external ear exam Neck Neck exam: Present normal inspection, full ROM and trachea midline; Absent tenderness Chest Chest inspection: Present normal inspection and symmetric chest wall rise; Absent tenderness Respiratory Respiratory exam: Present normal lung sounds bilaterally; Absent respiratory distress, wheezes, stridor or accessory muscle use Cardiovascular Cardiovascular exam: Present normal rhythm, tachycardia and normal heart sounds; Absent systolic murmur or diastolic murmur Abdominal Exam Abdominal exam: Present soft; Absent distention, tenderness, guarding, rebound or rigidity Extremities Exam Extremities exam: Present normal inspection, full ROM and normal capillary refill; Absent tenderness or edema Back Exam Back exam: Present normal inspection and full ROM; Absent tenderness Neurological Exam Neurological exam: Present alert, oriented X3, CN II-XII intact and normal gait; Absent motor sensory deficit Psychiatric Psychiatric exam: Present normal affect and normal mood Skin Skin exam: Present warm and dry HEART Score HEART Score HEART Score assessment performed?: Yes History (anamnesis): Slightly suspicious ECG: Non-specific disturbance Age: <45 years Risk factors: No known risk factors Troponin: </= normal limit HEART Score: 1 Procedures Limited Ultrasound Findings:: Limited cardiac ultrasound Indication: Palpitations Identified cardiac views: [-Cardiac parasternal long axis] [-Cardiac parasternal short axis] [-Cardiac apical four-chamber] [-Cardiac subxiphoid] Findings: [-Cardiac activity present -Gross wall motion normal -Pericardial effusion absent -Right heart strain absent] Impression: -[From above] Images [were saved] to permanent archive The study [was] technically adequate CPT: 72109 This study was performed by me, and I personally interpreted all images/videos. Based on my clinical judgement, these images were [adequate] and [did not] necessitate further imaging. Critical Care Critical Care Time Critical Care Time: No Medical Decision Making Medical Records Medical records reviewed: Yes I reviewed the patient's medical records. Thom Inquiry Pt receiving controlled substance: No Vital Signs Vital Signs: 11/10/23 19:13 11/10/23 19:30 11/10/23 19:57 Temperature 97.8 F Temperature Source Oral Pulse Rate 86 138 H Pulse Rate [Right Brachial] 125 H Respiratory Rate 18 14 11 L Blood Pressure 123/76 140/75 Blood Pressure [Right Arm] 137/85 Blood Pressure Mean 90 93 Blood Pressure Mean [Right Arm] 102 Blood Pressure Source [Right Arm] Automatic Cuff Blood Pressure Position 02 Sat by Pulse Oximetry 100 100 100 Oxygen Delivery Method Nasal Cannula Nasal Cannula 11/10/23 20:00 11/10/23 20:30 11/10/23 21:00 Temperature Temperature Source Pulse Rate 113 H 91 H 102 H Pulse Rate [Right Brachial] Respiratory Rate 15 14 15 Blood Pressure 131/82 124/77 128/80 Blood Pressure [Right Arm] Blood Pressure Mean 92 87 90 Blood Pressure Mean [Right Arm] Blood Pressure Source [Right Arm] Blood Pressure Position 02 Sat by Pulse Oximetry 100 99 100 Oxygen Delivery Method Nasal Cannula Room Air Room Air 11/10/23 21:35 Temperature 98 F Temperature Source Oral Pulse Rate 77 Pulse Rate [Right Brachial] Respiratory Rate 16 Blood Pressure 120/77 Blood Pressure [Right Arm] Blood Pressure Mean Blood Pressure Mean [Right Arm] Blood Pressure Source [Right Arm] Blood Pressure Position Sitting 02 Sat by Pulse Oximetry Oxygen Delivery Method Room Air Lab Data Labs: Lab Results 11/10/23 19:15: WBC 12.9 H, RBC 5.02, Hgb 15.0, Hct 44.5, MCV 88.6, MCH 29.8, MCHC 33.6, RDW 13.2, Plt Count 350, MPV 8.3, Neut % (Auto) 66.8, Lymph % (Auto) 23.6, [place] % (Auto) 5.1, Eos % (Auto) 3.5, Baso % (Auto) 1.0, Neut # (Auto) 8.7 H, Lymph # (Auto) 3.1, [place] # (Auto) 0.7, Eos # (Auto) 0.5 H, Baso # (Auto) 0.1, ESR 5, D-Dimer < 0.25, Sodium 141, Potassium 3.0 L, Chloride 105, Carbon Dioxide 24, Anion Gap 15.0, BUN 19, Creatinine 0.80, Estimated Creat Clear 144, Estimated GFR 117, Est GFR ( Amer) 141, Glucose 146 H, Calcium 10.0, M agnesium 1.5 L, Total Bilirubin 1.2, AST 43, ALT 46, Alkaline Phosphatase 53, Troponin I < 0.01, C-Reactive Protein 0.4, NT-Pro-B Natriuret Pep < 20.0, Total Protein 8.2, Albumin 5.1 H, Globulin 3.1, Albumin/Globulin Ratio 1.6 11/10/23 19:58: VBG pH 7.43 H, VBG pCO2 33.8 L, VBG pO2 43.5 H, VBG HCO3 21.7 L, VBG Total CO2 22.8 L, VBG O2 Saturation 82.5 H, VBG Base Excess -2.6 L, VBG Lactic Acid 2.4 H 11/10/23 19:15 11/10/23 19:15 Response Orders (Tests/Meds): ED MEDICATIONS Discontinued Medications Generic Name Dose Route Start Last Admin Trade Name Angie PRN Reason Stop Dose Admin Hydroxyzine Pamoate 25 mg 11/10/23 20:02 11/10/23 20:06 Hydroxyzine Pamoate 25mg Capsule PO 11/10/23 20:03 25 mg ONCE ONE Administration Lactated Ringer's 1,000 mls @ 999 mls/hr 11/10/23 19:36 11/10/23 20:00 Lactated Ringer's 1000 Ml Bag IV 11/10/23 20:36 999 mls/hr .Q1H1M ONE Administration Magnesium Sulfate 2 gm in 50 mls @ 50 mls/hr 11/10/23 19:59 11/10/23 20:06 Magnesium Sulfate 2gm/50ml Premix IV 11/10/23 20:58 50 mls/hr ONCE ONE Administration Potassium Chloride 40 meq 11/10/23 19:59 11/10/23 20:14 Potassium Chloride 20meq Tab PO 11/10/23 20:00 Not Given ONCE ONE Potassium Chloride 40 meq 11/10/23 20:18 11/10/23 20:22 Potassium Chloride 20meq/15ml Udc PO 11/10/23 20:19 40 meq ONCE ONE Administration ORDERS Category Date Time Status POCUS Point of Care (ER Only) Stat Exams 11/10/23 19:15 Completed XR chest portable Stat Exams 11/10/23 19:15 Completed C-Reactive Protein Stat Lab 11/10/23 19:15 Completed Complete Blood Count Auto Diff Stat Lab 11/10/23 19:15 Completed Comprehensive Metabolic Panel Stat Lab 11/10/23 19:15 Completed D-Dimer Stat Lab 11/10/23 19:15 Completed Erythrocyte Sedimentation Rate Stat Lab 11/10/23 19:15 Completed Magnesium Stat Lab 11/10/23 19:15 Completed NT Pro Brain Natriuretic Pep. Stat Lab 11/10/23 19:15 Completed Troponin I Stat Lab 11/10/23 19:15 Completed Blood Culture Stat Micro 11/10/23 19:42 Received VBG [Venous Blood Gas] Stat RT 11/10/23 19:58 Completed ECG Data Tracing #1: Attestation: I reviewed this ECG and interpreted as documented below: ECG Narrative: Sinus tachycardia with a ventricular rate of 118 bpm. Right ventricular conduction delay. ECG initial impression date: 11/10/23 ECG initial impression time: 19:12 Tracing #2: Attestation: I reviewed this ECG and interpreted as documented below: ECG Narrative: Sinus tachycardia with a ventricular rate of 122 bpm. Incomplete right bundle branch block. Nonspecific ST/T wave changes unchanged from prior EKG without acute STEMI. ECG initial impression date: 11/10/23 ECG initial impression time: 20:02 MDM Narrative Medical Decision Narrative: In summary, this patient is a 28-year-old male presenting to the Emergency Department for evaluation of intermittent episodes of palpitations, anxiety, and nausea. Differential diagnoses considered include but are not limited to ACS, dysrhythmia, PE, pericarditis, myocarditis, endocarditis. Ruling out the most morbid conditions drove assessment. It should be noted patient's history includes poor dentition which may or may not be at goal therapy. This complicates all aspects of care by increasing patient's risk for morbidity. On exam, the patient is nontoxic-appearing. He is afebrile. He is mildly tachycardic, but otherwise vitals are reassuring. He is low risk for PE but cannot use PERC to exclude given his tachycardia. Workup included CBC, CMP, ESR, CRP, D-dimer, troponin, BNP, VBG, chest x-ray, and EKG. He was given a bolus of IV fluids. EKG obtained is reassuring with the exception of sinus tachycardia. Bedside cardiac ultrasound was also reassuring without any obvious acutely concerning abnormalities. I independently interpreted x-ray prior to the radiologist read and noted no acute focal consolidation. Please see their read for final interpretation. Labs were obtained that demonstrated very mild leukocytosis, which is nonspecific. Inflammatory markers are negative. D-dimer is also negative, so I do not feel that further workup for PE is indicated. Troponin is negative.. Patient did become more anxious and subsequently his heart rate went up again. Repeat EKG was obtained that also demonstrated sinus tachycardia. He was given hydroxyzine for anxiety, and with this, his heart rate did come down. He was found to have hypokalemia as well as hypomagnesemia. Hypokalemia could be transient shift related to panic attack and respiratory alkalosis, however patient was given oral potassium as well as IV magnesium replacement nonetheless because this could be contributing to palpitations and could be triggering his anxiety. Ultimately, patient has a low heart score with reassuring workup. I doubt infectious pathology at this time, and I feel symptoms are likely manifestations of anxiety/panic. I prescribed hydroxyzine and gave him instructions for very close outpatient follow-up and strict return precautions. Patient was discharged after all questions were answered.
[2023-11-10 19:33] LABS: Alanine Aminotransferase 46 U/L (12-78); Albumin Level 5.1 g/dl (3.5-5.0); Albumin/Globulin Ratio 1.6 (1.1-1.8); Alkaline Phosphatase 53 U/L (38-126); Aspartate Amino Transferase 43 U/L (17-59); Bilirubin,Total 1.2 mg/dl (0.2-1.3); Blood Urea Nitrogen 19 mg/dl (9-20); Carbon Dioxide 24 mmol/L (22.0-30.0); Chloride 105 mmol/L (98-107); Creatinine Clearance Estimated 144 mL/min (50-200); Estimated Glomerular Filt Rate 117 ml/min (>60); GFR (African American) 141 ML/MIN (>60); Globulin 3.1 g/dL (1.3-3.2); Glucose 146 mg/dl (74-100); Magnesium 1.5 mg/dl (1.6-2.3); Sodium 141 mmol/L (136-145); Total Protein,Serum 8.2 g/dl (6.3-8.2)
[2023-11-10 19:38] LABS: D-Dimer < 0.25 ug/mL (0.0-0.5)
[2023-11-10 19:39] LABS: C-Reactive Protein 0.4 mg/L (0-4)
--- NOTE | 2023-11-10 19:44 | PC.NURSE ---
i concur with SN assessment
[2023-11-10 19:48] LABS: NT Pro Brain Natriuretic Pep. < 20.0 pg/mL (0-125); Troponin I < 0.01 ng/ml (0.00-0.034)
--- NOTE | 2023-11-10 19:49 | PC.NURSE ---
Mira from the lab called a Critical lab value for the pt. Potassium level at 3.0. and RN notified. CR
[2023-11-10 19:54] LABS: Erythrocyte Sedimentation Rate 5 mm/hr (0-15)
[2023-11-10] MEDS: LACTATED RINGERS 1000ML 1,000 ML 999 ML IV (20:00)
--- NOTE | 2023-11-10 20:00 | ECG_ITS ---
APPROVED REPORT Exam: Resting ECG HR:122 bpm ECG Measurements Heart Rate 122 AXES OR 190 P 82 QRSd 110 QRS 87 QT 436 T 85 QTc 508 Conclusion SINUS TACHYCARDIA INCOMPLETE RIGHT BUNDLE BRANCH BLOCK [90+ ms QRS DURATION, TERMINAL R IN V1/V2, 40+ ms S IN I/aVL/V4/V5/V6] Electronically signed by : TYRONE EDOUARD, 11/10/2023 23:54:16
[2023-11-10] MEDS: hydrOXYzine pamoate 25MG CAPSULE 25 MG PO (20:06)
[2023-11-10] MEDS: MAGNESIUM SULFATE IN WATER 2 GM/50 ML PIGGYBACK IV (20:06)
[2023-11-10 20:09] LABS: VBG Base Excess -2.6 mmol/L (-2.4-2.3); VBG HCO3 21.7 mmol/L (23-30); VBG Oxygen Saturation 82.5 % (50-70); VBG PCO2 33.8 mmol/L (35-51); VBG PH 7.43 mmol/L (7.31-7.41); VBG PO2 43.5 mmol/L (28-40); VBG Total CO2 22.8 mmol/L (23-27)
[2023-11-10 20:11] LABS: Lactate Venous 2.4 mmol/L (0.4-2.0)
[2023-11-10] MEDS: POTASSIUM CHLORIDE 20MEQ/15ML UDC 40 MEQ PO (20:22)
== END 2023-11-10 21:40 | disposition home or self-care (01) ==
PROVIDERS: Emergency Provider Emergency Medicine
DX: E87.6 Hypokalemia (principal); R00.0 Tachycardia, unspecified; E83.42 Hypomagnesemia; F41.9 Anxiety disorder, unspecified
CPT/HCPCS: 71045; 80053; 82803; 83735; 83880; 84484; 85025; 85378; 85651; 86140; 87040; 93005; 96365; 99285; J3475

== ENCOUNTER 2023-12-03 17:30 | Emergency (ER) | payer BC, SELFPAY ==
[2023-12-03 17:40] VITALS: BP 108/75; PULSE 60; RESP 20; TEMP 36.7; O2SAT 96; BMI 19.5
--- NOTE | 2023-12-03 17:58 | EXP.UTC ---
Discharge Plan Disposition Patient Disposition: Home, Self-Care Condition: Good Prescriptions Prescriptions: New ondansetron 4 mg tablet,disintegrating 4 mg PO Q12 PRN (Reason: nausea and vomiting) Qty: 6 0RF No Action venlafaxine 37.5 mg capsule,extended release 24hr 1 mg PO DAILY Patient Comments: TAKE ONE CAPSULE BY MOUTH EVERY DAY --TAKE WITH FOOD-- sertraline 50 mg tablet 50 mg PO DAILY Patient Comments: TAKE ONE TABLET BY MOUTH EVERY DAY Referrals Follow up/Referrals: Sebastian Chisholm MD [Primary Care Provider] - See instructions Activity Restrictions/Add. Instructions Additional Instructions/Restrictions: Drink extra fluids with and between meals. If you have difficulty drinking, try very small amounts of water or suck on ice chips. ? Avoid fruit juices, as these do not replace minerals and can actually increase diarrhea. ? Children and adults can use sports drinks to replenish electrolytes. Younger children and infants should use products formulated for children, like oral rehydration solutions. ? Eat food in small amounts and let your stomach recover. ? Get lots of rest. You may feel tired or weak. ? No greasy or fried foods for the next 24-48 hours BRAT diet Bananas Rice Apples and [place] ? Make sure to drink plenty of liquids ? Return if needed ? Straight to ER if any life threatening symptoms ? Zofran as prescribed ? Follow up with family doctor in the next 48-72 hours if no improvement or any worsening of symptoms Clinical Impressions Clinical Impression: Nausea Stand Alone Forms Stand Alone Forms: Work/School Release Instructions Patient Instructions: DI for Nausea -- Adult, Ondansetron Discharge ED Provider: Kay Urias [facility] HPI General Stated complaint: stomach ache Mode of Arrival: Ambulatory Source of Information: Patient Limitations: No Limitations Time Seen by Provider: 12/03/23 17:58 Description of Symptoms (Recalled from Triage Doc. by RN): PATIENT C/O STOMACH ACHE TO MIDDLE ABDOMEN SINCE YESTERDAY MORNING HEENT Symptoms (Recalled from RN notes): No Resp Symptoms (Recalled from RN notes): No Skin Symptoms (Recalled from RN notes): No MS Symptoms (Recalled from RN notes): No Functional Status (Recalled from RN notes): WNL History of Present Illness Provider Complaint: Patient states that he started feeling bad yesterday and having nausea and feeling like he was going to throw up but hasnt vomited and he was unable to go to work yesterday and today so he came in today when he was still having Nausea to get something for the nausea and a work note Related Data Home Medications Medication Instructions Recorded Confirmed sertraline 50 mg tablet 50 mg PO DAILY 12/03/23 12/03/23 venlafaxine 37.5 mg 1 mg PO DAILY 12/03/23 12/03/23 capsule,extended release 24 hr Previous Rx's Medication Instructions Recorded ondansetron 4 mg disintegrating 4 mg PO Q12 PRN nausea and 12/03/23 tablet vomiting #6 tabs Allergies Allergy/AdvReac Type Severity Reaction Status Date / Time No Known Allergies Allergy Verified 09/11/22 15:32 Worker's Comp Is this a Worker's Comp case?: No [facility] Disclaimer: The information contained in this section may have been updated after the patient was seen, as this information can be updated by other users. Medical History Low back pain No significant past medical history Welders' keratitis of both eyes Strep throat UV keratitis Left shoulder strain Tooth abscess Surgical History History of tonsillectomy Social History Smoking Status: Never smoker alcohol intake: never current occupational status: employed Travel in the last 8 weeks: None ROS Obtained: Yes All systems reviewed & no additional complaints except as documented and Yes Systems reviewed as appropriate & no additional complaints except as documented Constitutional Constitutional: Reports system reviewed and no additional complaints, except as documented and Reports as per HPI ENT Ears, Nose, Mouth, and Throat: Reports system reviewed and no additional complaints, except as documented and Reports as per HPI Cardiovascular Cardiovascular: Reports system reviewed and no additional complaints, except as documented and Reports as per HPI Respiratory Respiratory: Reports system reviewed and no additional complaints, except as documented and Reports as per HPI Gastrointestinal Gastrointestingal: Reports system reviewed and no additional complaints, except as documented, as per HPI, cramping and nausea; Denies abdominal pain, diarrhea, excessive flatus, heartburn, hematemesis, hematochezia, loose stools, melena, reflux or vomiting Physical Exam General General appearance: alert and in no apparent distress ENT ENT exam: Present mucous membranes moist Respiratory Respiratory exam: Present normal lung sounds bilaterally; Absent respiratory distress or wheezes Cardiovascular Cardiovascular exam: Present regular rate, normal rhythm and normal heart sounds Abdominal Exam Abdominal exam: Present soft and normal bowel sounds; Absent distention or tenderness Neurological Exam Neurological exam: Present alert, oriented X3 and normal gait Medical Decision Making Thom Inquiry Pt receiving controlled substance: No Thom was queried for this patient: No Vital Signs: 12/03/23 17:40 Temperature 98.0 F Temperature Source Oral Pulse Rate [Left Brachial] 60 Respiratory Rate 20 Blood Pressure [Left Arm] 108/75 L Blood Pressure Mean [Left Arm] 86 Blood Pressure Source [Left Arm] Automatic Cuff Blood Pressure Position [Left Arm] Sitting 02 Sat by Pulse Oximetry 96 Oxygen Delivery Method Room Air
[2023-12-03 18:25] VITALS: BP 108/75; PULSE 60; RESP 20; TEMP 36.7; O2SAT 96
== END 2023-12-03 18:28 | disposition home or self-care (01) ==
PROVIDERS: Emergency Provider Nurse Practitioner; PCP Family Medicine
DX: R11.0 Nausea (principal)
CPT/HCPCS: 99212; 99214; G0463

== ENCOUNTER 2024-01-07 17:10 | Emergency (ER) | payer BC, SELFPAY ==
[2024-01-07 17:15] VITALS: BP 111/68; PULSE 72; RESP 20; TEMP 36.8; O2SAT 97; BMI 19.5
--- NOTE | 2024-01-07 17:19 | EXP.UTC ---
Discharge Plan Disposition Patient Disposition: Home, Self-Care Condition: Good Prescriptions Prescriptions: New polyethylene glycol 3350 [Miralax] 17 gram/dose powder 17 g PO DAILY PRN (Reason: constipation) Qty: 119 0RF No Action venlafaxine 37.5 mg capsule,extended release 24hr 1 mg PO DAILY Patient Comments: TAKE ONE CAPSULE BY MOUTH EVERY DAY --TAKE WITH FOOD-- hydroxyzine HCl 25 mg tablet 25 mg PO DAILY Patient Comments: TAKE ONE TABLET BY MOUTH EVERY 8 HOURS NEEDED FOR panic attacks Referrals Follow up/Referrals: Provider,Referral, [Primary Care Provider] - See instructions Activity Restrictions/Add. Instructions Additional Instructions/Restrictions: Drink plenty of fluids. Eat a diet high in fiber. Take the medications as directed. Follow up with your regular doctor. GO TO THE ER FOR ANY WORSENING SYMPTOMS Clinical Impressions Clinical Impression: Constipation Stand Alone Forms Stand Alone Forms: Work/School Release Instructions Patient Instructions: Constipation, DI for Constipation, Polyethylene Glycol 3350 Discharge ED Provider: Frandy Dial [facility] General Stated complaint: constipation Time Seen by Provider: 01/07/24 17:19 History of Present Illness Provider Complaint: He states that he has had constipation for the past 4 days. He has a history of getting constipated. He states that he tried to work today but he was having nausea and abdominal fullness. He denies abdominal pain. Related Data Home Medications Medication Instructions Recorded Confirmed venlafaxine 37.5 mg 1 mg PO DAILY 12/03/23 01/07/24 capsule,extended release 24 hr hydroxyzine HCl 25 mg tablet 25 mg PO DAILY 01/07/24 01/07/24 Previous Rx's Medication Instructions Recorded polyethylene glycol 3350 17 17 g PO DAILY PRN constipation 01/07/24 gram/dose oral powder (Miralax) #119 grams Allergies Allergy/AdvReac Type Severity Reaction Status Date / Time No Known Allergies Allergy Verified 09/11/22 15:32 [facility] Disclaimer: The information contained in this section may have been updated after the patient was seen, as this information can be updated by other users. Medical History (Updated 01/07/24 @ 18:08 by Frandy Dial APRN) Anxiety Low back pain Welders' keratitis of both eyes Strep throat UV keratitis Left shoulder strain Tooth abscess Surgical History History of tonsillectomy Social History Smoking Status: Never smoker alcohol intake: never current occupational status: employed Travel in the last 8 weeks: None ROS Obtained: Yes All systems reviewed & no additional complaints except as documented Constitutional Constitutional: Denies chills, Denies fever(s) and Reports poor appetite ENT Ears, Nose, Mouth, and Throat: Denies dizziness and Denies sore throat Cardiovascular Cardiovascular: Denies dyspnea Respiratory Respiratory: Denies chest congestion, Denies cough and Denies dyspnea Gastrointestinal Gastrointestingal: Reports as per HPI, constipation and nausea; Denies abdominal pain, cramping, hematochezia, melena or vomiting Musculoskeletal Musculoskeletal: Denies arthralgias Integumentary/Breasts Skin/Breast: Denies rash Neurologic Neurologic: Denies dizziness Physical Exam General General appearance: alert and in no apparent distress Head Head exam: atraumatic and normocephalic Eye Eye exam: Present normal appearance, PERRL and EOMI ENT ENT exam: Present normal exam, normal oropharynx, mucous membranes moist, TM's normal bilaterally and normal external ear exam Neck Neck exam: Present normal inspection, full ROM and trachea midline; Absent tenderness, meningismus or lymphadenopathy Chest Chest inspection: Present normal inspection and symmetric chest wall rise; Absent tenderness, rash or abscess Respiratory Respiratory exam: Present normal lung sounds bilaterally; Absent respiratory distress, wheezes or stridor Cardiovascular Cardiovascular exam: Present regular rate and normal rhythm; Absent irregular rhythm, systolic murmur, diastolic murmur or JVD Abdominal Exam Abdominal exam: Present soft and normal bowel sounds; Absent distention, tenderness, guarding, rebound, rigidity, psoas sign, obturator sign, heel tap sign, Zacarias's sign, Rovsing's sign or tenderness at McBurney's Point Extremities Exam Extremities exam: Present normal inspection and full ROM; Absent tenderness Back Exam Back exam: Present normal inspection and full ROM; Absent tenderness, CVA tenderness (R) or CVA tenderness (L) Neurological Exam Neurological exam: Present alert, oriented X3 and CN II-XII intact Psychiatric Psychiatric exam: Present normal affect and normal mood Skin Skin exam: Present warm, dry, intact and normal color Lymphatic Lymphatic Findings: no adenopathy Medical Decision Making Medical Records Medical records reviewed: No I reviewed the patient's medical records. Thom Inquiry Pt receiving controlled substance: No
--- NOTE | 2024-01-07 17:26 | XR_ITS ---
PROCEDURE INFORMATION: Exam: XR Abdomen Exam date and time: 01/07/2024 5:24 PM Age: 28 years old Clinical indication: Nausea; Additional info: Nausea, possible constipation TECHNIQUE: Imaging protocol: Radiologic exam of the abdomen. Views: Frontal supine view of the abdomen. 1 View. COMPARISON: CR XR ACUTE ABDOMEN SERIES 09/11/2022 4:15 PM FINDINGS: Gastrointestinal tract: Mild thickening of the transverse colon and descending colon haustra which can be seen with infectious or inflammatory process. Bones/joints: Unremarkable. IMPRESSION: Mild thickening of the transverse colon and descending colon haustra which can be seen with infectious or inflammatory process.
[2024-01-07 18:10] VITALS: BP 111/68; PULSE 72; RESP 20; TEMP 36.8; O2SAT 97
== END 2024-01-07 18:12 | disposition home or self-care (01) ==
PROVIDERS: Emergency Provider Nurse Practitioner Family
DX: K59.00 Constipation, unspecified (principal); R14.0 Abdominal distension (gaseous); R11.0 Nausea
CPT/HCPCS: 74018; 99212; 99214; G0463

== ENCOUNTER 2024-02-04 11:47 | Emergency (ER) | payer BC, SELFPAY ==
[2024-02-04 11:55] VITALS: BP 113/64; PULSE 63; RESP 18; TEMP 36.7; O2SAT 100; BMI 19.5
--- NOTE | 2024-02-04 12:00 | ED_ITS ---
Discharge Plan Disposition Patient Disposition: Home, Self-Care Condition: Good Prescriptions Prescriptions: New ondansetron 4 mg Tablet,Disintegrating 4 mg PO Q8H PRN (Reason: Nausea) Qty: 12 0RF No Action ondansetron 4 mg tablet,disintegrating 4 mg PO Q8H PRN (Reason: nausea and vomiting) Qty: 30 0RF hydroxyzine HCl 25 mg tablet 25 mg PO DAILY Patient Comments: TAKE ONE TABLET BY MOUTH EVERY 8 HOURS NEEDED FOR panic attacks Referrals Follow up/Referrals: Sebastian Chisholm MD [Primary Care Provider] - See instructions Activity Restrictions/Add. Instructions Additional Instructions/Restrictions: Drink plenty of fluids. Take tylenol or ibuprofen for pain or fever. Take the medications as directed. Follow up with your regular doctor. GO TO THE ER FOR ANY WORSENING SYMPTOMS Clinical Impressions Clinical Impression: Gastroenteritis Stand Alone Forms Stand Alone Forms: Work/School Release Instructions Patient Instructions: Viral Gastroenteritis, DI for Viral Gastroenteritis -- Adult, Ondansetron Discharge ED Provider: Frandy Dial [facility] General Stated complaint: stomach pain Mode of Arrival: Ambulatory Source of Information: Patient Limitations: No Limitations Time Seen by Provider: 02/04/24 12:00 Description of Symptoms (Recalled from Triage Doc. by RN): PATIENT C/O NAUSEA AND SOME DIARRHEA THAT STARTED YESTERDAY HEENT Symptoms (Recalled from RN notes): No Resp Symptoms (Recalled from RN notes): No Skin Symptoms (Recalled from RN notes): No MS Symptoms (Recalled from RN notes): No Functional Status (Recalled from RN notes): WNL Related Data Home Medications Medication Instructions Recorded Confirmed hydroxyzine HCl 25 mg tablet 25 mg PO DAILY 01/07/24 02/04/24 Previous Rx's Medication Instructions Recorded ondansetron 4 mg disintegrating 4 mg PO Q8H PRN nausea and 01/28/24 tablet vomiting #30 tabs ondansetron 4 mg disintegrating 4 mg PO Q8H PRN Nausea #12 tabs 02/04/24 tablet Allergies Allergy/AdvReac Type Severity Reaction Status Date / Time No Known Allergies Allergy Verified 01/28/24 14:00 Worker's Comp Is this a Worker's Comp case?: No [facility] Disclaimer: The information contained in this section may have been updated after the patient was seen, as this information can be updated by other users. Medical History Abdominal pain Dental infection Dental caries Fracture of tooth Anxiety Palpitations Hypomagnesemia Hypokalemia Nausea Constipation Anxiety Low back pain Welders' keratitis of both eyes Strep throat UV keratitis Left shoulder strain Tooth abscess Surgical History History of tonsillectomy Family History Other No significant family history Social History Smoking Status: Never smoker alcohol intake: never current occupational status: employed Travel in the last 8 weeks: None ROS Obtained: Yes All systems reviewed & no additional complaints except as documented Constitutional Constitutional: Denies chills, Denies fever(s) and Reports poor appetite ENT Ears, Nose, Mouth, and Throat: Denies dizziness and Denies sore throat Cardiovascular Cardiovascular: Denies dyspnea Respiratory Respiratory: Denies chest congestion, Denies cough and Denies dyspnea Gastrointestinal Gastrointestingal: Denies abdominal pain Musculoskeletal Musculoskeletal: Denies arthralgias Integumentary/Breasts Skin/Breast: Denies rash Neurologic Neurologic: Denies dizziness Physical Exam General General appearance: alert and in no apparent distress Head Head exam: atraumatic and normocephalic Eye Eye exam: Present normal appearance, PERRL and EOMI ENT ENT exam: Present normal exam, normal oropharynx, mucous membranes moist, TM's normal bilaterally and normal external ear exam Neck Neck exam: Present normal inspection, full ROM and trachea midline; Absent tenderness, meningismus or lymphadenopathy Chest Chest inspection: Present normal inspection and symmetric chest wall rise; Absent tenderness, rash or abscess Respiratory Respiratory exam: Present normal lung sounds bilaterally; Absent respiratory distress, wheezes or stridor Cardiovascular Cardiovascular exam: Present regular rate and normal rhythm; Absent irregular rhythm, systolic murmur, diastolic murmur or JVD Abdominal Exam Abdominal exam: Present soft and hyperactive bowel sounds; Absent distention, tenderness, guarding, rebound, rigidity, psoas sign, obturator sign, heel tap sign, Zacarias's sign, Rovsing's sign or tenderness at McBurney's Point Extremities Exam Extremities exam: Present normal inspection and full ROM; Absent tenderness Back Exam Back exam: Present normal inspection and full ROM; Absent tenderness, CVA tenderness (R) or CVA tenderness (L) Neurological Exam Neurological exam: Present alert, oriented X3 and CN II-XII intact Psychiatric Psychiatric exam: Present normal affect and normal mood Skin Skin exam: Present warm, dry, intact and normal color Lymphatic Lymphatic Findings: no adenopathy Medical Decision Making Medical Records Medical records reviewed: No I reviewed the patient's medical records. Thom Inquiry Pt receiving controlled substance: No Vital Signs: 02/04/24 11:55 Temperature 98.0 F Temperature Source Oral Pulse Rate [Left Brachial] 63 Respiratory Rate 18 Blood Pressure [Left Arm] 113/64 Blood Pressure Mean [Left Arm] 80 Blood Pressure Source [Left Arm] Automatic Cuff Blood Pressure Position [Left Arm] Sitting 02 Sat by Pulse Oximetry 100 Oxygen Delivery Method Room Air
[2024-02-04 12:27] VITALS: BP 113/64; PULSE 63; RESP 18; TEMP 36.7; O2SAT 100
== END 2024-02-04 12:30 | disposition home or self-care (01) ==
PROVIDERS: Emergency Provider Nurse Practitioner Family; PCP Family Medicine
DX: K52.9 Noninfective gastroenteritis and colitis, unspecified (principal); R11.0 Nausea
CPT/HCPCS: 99212; 99214; G0463

== ENCOUNTER 2024-06-29 16:10 | Emergency (ER) | payer BC, SELFPAY ==
[2024-06-29 16:40] VITALS: BP 116/69; PULSE 112; RESP 18; TEMP 37.2; O2SAT 97; BMI 19.5
--- NOTE | 2024-06-29 16:43 | ED_ITS ---
Discharge Plan Disposition Patient Disposition: Home, Self-Care Condition: Good Prescriptions Prescriptions: New famotidine 40 mg tablet 40 mg PO DAILY 30 Days Qty: 30 0RF ondansetron 4 mg Tablet,Disintegrating 4 mg PO Q8H PRN (Reason: Nausea) Qty: 12 0RF No Action hydroxyzine HCl 25 mg tablet 25 mg PO DAILY Patient Comments: TAKE ONE TABLET BY MOUTH EVERY 8 HOURS NEEDED FOR panic attacks venlafaxine 75 mg capsule,extended release 24hr 75 mg PO DAILY Patient Comments: TAKE ONE CAPSULE BY MOUTH EVERY DAY WITH FOOD Referrals Follow up/Referrals: Sebastian Chisholm MD [Primary Care Provider] - See instructions Activity Restrictions/Add. Instructions Additional Instructions/Restrictions: Drink plenty of fluids. Take tylenol for pain or fever. Take the medications as directed. Follow up with your regular doctor. GO TO THE ER FOR ANY WORSENING SYMPTOMS Clinical Impressions Clinical Impression: Gastroenteritis Stand Alone Forms Stand Alone Forms: Work/School Release Instructions Patient Instructions: Viral Gastroenteritis, DI for Viral Gastroenteritis -- Adult, Ondansetron, Famotidine Print Language Print Language: British Discharge ED Provider: Frandy Dial [facility] General Stated complaint: stomach pain Time Seen by Provider: 06/29/24 16:42 Related Data Home Medications ?Medication ?Instructions ?Recorded ?Confirmed hydroxyzine HCl 25 mg tablet 25 mg PO DAILY 01/07/24 06/29/24 venlafaxine 75 mg capsule,extended 75 mg PO DAILY 06/29/24 06/29/24 release 24 hr Previous Rx's ?Medication ?Instructions ?Recorded famotidine 40 mg tablet 40 mg PO DAILY 30 days #30 tabs 06/29/24 ondansetron 4 mg disintegrating 4 mg PO Q8H PRN Nausea #12 tabs 06/29/24 tablet Allergies Allergy/AdvReac Type Severity Reaction Status Date / Time No Known Allergies Allergy Verified 05/18/24 15:15 [facility] Disclaimer: The information contained in this section may have been updated after the patient was seen, as this information can be updated by other users. Medical History Abdominal pain Dental infection Dental caries Fracture of tooth Anxiety Palpitations Hypomagnesemia Hypokalemia Nausea Constipation Anxiety Low back pain Welders' keratitis of both eyes Strep throat UV keratitis Left shoulder strain Tooth abscess Surgical History History of tonsillectomy Family History Other No significant family history Social History Smoking Status: Never smoker alcohol intake: never current occupational status: employed Travel in the last 8 weeks: None ROS Obtained: Yes All systems reviewed & no additional complaints except as documented Constitutional Constitutional: Denies chills, Denies fever(s) and Reports poor appetite ENT Ears, Nose, Mouth, and Throat: Denies dizziness and Denies sore throat Cardiovascular Cardiovascular: Denies dyspnea Respiratory Respiratory: Denies chest congestion, Denies cough and Denies dyspnea Gastrointestinal Gastrointestingal: Reports as per HPI; Denies abdominal pain Genitourinary Male Genitourinary: Denies difficulty urinating and Denies hematuria Musculoskeletal Musculoskeletal: Denies arthralgias Integumentary/Breasts Skin/Breast: Denies rash Neurologic Neurologic: Denies dizziness Physical Exam General General appearance: alert and in no apparent distress Head Head exam: atraumatic and normocephalic Eye Eye exam: Present normal appearance, PERRL and EOMI ENT ENT exam: Present normal exam, normal oropharynx, mucous membranes moist, TM's normal bilaterally and normal external ear exam Neck Neck exam: Present normal inspection, full ROM and trachea midline; Absent tenderness, meningismus or lymphadenopathy Chest Chest inspection: Present normal inspection and symmetric chest wall rise; Absent tenderness, rash or abscess Respiratory Respiratory exam: Present normal lung sounds bilaterally; Absent respiratory d istress, wheezes or stridor Cardiovascular Cardiovascular exam: Present regular rate and normal rhythm; Absent irregular rhythm, systolic murmur, diastolic murmur or JVD Abdominal Exam Abdominal exam: Present soft and hyperactive bowel sounds; Absent distention, tenderness, guarding, rebound, rigidity, psoas sign, obturator sign, heel tap sign, Zacarias's sign, Rovsing's sign or tenderness at McBurney's Point Extremities Exam Extremities exam: Present normal inspection and full ROM; Absent tenderness Back Exam Back exam: Present normal inspection and full ROM; Absent tenderness, CVA tenderness (R) or CVA tenderness (L) Neurological Exam Neurological exam: Present alert, oriented X3 and CN II-XII intact Psychiatric Psychiatric exam: Present normal affect and normal mood Skin Skin exam: Present warm, dry, intact and normal color Lymphatic Lymphatic Findings: no adenopathy Medical Decision Making Medical Records Medical records reviewed: No I reviewed the patient's medical records. Screening: Per USPSTF and CDC recommendations, given the prevalence of disease in our region, it is our hospital?s policy to screen for HIV and viral Hepatitis for all patients aged 18 and over and those with ongoing risk factors. Tohm Inquiry Pt receiving controlled substance: No Lab Data Lab results reviewed: Yes I reviewed the patient's lab results.
[2024-06-29 17:54] VITALS: BP 116/69; PULSE 112; RESP 18; TEMP 37.2; O2SAT 97
== END 2024-06-29 18:00 | disposition home or self-care (01) ==
PROVIDERS: Emergency Provider Nurse Practitioner Family; PCP Family Medicine
DX: K52.9 Noninfective gastroenteritis and colitis, unspecified (principal)
CPT/HCPCS: 99213; G0381

== ENCOUNTER 2024-08-19 13:11 | Emergency (ER) | payer BC, SELFPAY ==
--- NOTE | 2024-08-19 13:47 | EXP.UTC ---
Discharge Plan Disposition Patient Disposition: Home, Self-Care Condition: Good Prescriptions Prescriptions: New ondansetron 4 mg Tablet,Disintegrating 4 mg PO Q8H PRN (Reason: Nausea) Qty: 12 0RF No Action hydroxyzine HCl 25 mg tablet 25 mg PO DAILY Patient Comments: TAKE ONE TABLET BY MOUTH EVERY 8 HOURS NEEDED FOR panic attacks venlafaxine 75 mg capsule,extended release 24hr 75 mg PO DAILY Patient Comments: TAKE ONE CAPSULE BY MOUTH EVERY DAY WITH FOOD famotidine 40 mg tablet 40 mg PO DAILY 30 Days Qty: 30 0RF ondansetron 4 mg Tablet,Disintegrating 4 mg PO Q8H PRN (Reason: Nausea) Qty: 12 0RF Referrals Follow up/Referrals: Sebastian Chisholm MD [Primary Care Provider] - See instructions Activity Restrictions/Add. Instructions Additional Instructions/Restrictions: Drink plenty of fluids. Take tylenol for pain or fever. Take the medications as directed. Follow up with your regular doctor. GO TO THE ER FOR ANY WORSENING SYMPTOMS Clinical Impressions Clinical Impression: Gastroenteritis Stand Alone Forms Stand Alone Forms: Work/School Release Instructions Patient Instructions: Viral Gastroenteritis, DI for Viral Gastroenteritis -- Adult, Ondansetron Print Language Print Language: Greenlandic Discharge ED Provider: Frandy Dial [facility] General Stated complaint: nausea, stomach pain Time Seen by Provider: 08/19/24 13:44 History of Present Illness Provider Complaint: He states that for the past 1 day he has had n/v/d. He has also had abdominal cramping, but he denies constant abdominal pain. Related Data Home Medications ?Medication ?Instructions ?Recorded ?Confirmed hydroxyzine HCl 25 mg tablet 25 mg PO DAILY 01/07/24 08/19/24 venlafaxine 75 mg capsule,extended 75 mg PO DAILY 06/29/24 08/19/24 release 24 hr Previous Rx's ?Medication ?Instructions ?Recorded famotidine 40 mg tablet 40 mg PO DAILY 30 days #30 tabs 06/29/24 ondansetron 4 mg disintegrating 4 mg PO Q8H PRN Nausea #12 tabs 06/29/24 tablet ondansetron 4 mg disintegrating 4 mg PO Q8H PRN Nausea #12 tabs 08/19/24 tablet Allergies Allergy/AdvReac Type Severity Reaction Status Date / Time No Known Allergies Allergy Verified 05/18/24 15:15 [facility] Disclaimer: The information contained in this section may have been updated after the patient was seen, as this information can be updated by other users. Medical History Abdominal pain Dental infection Dental caries Fracture of tooth Anxiety Palpitations Hypomagnesemia Hypokalemia Nausea Constipation Anxiety Low back pain Welders' keratitis of both eyes Strep throat UV keratitis Left shoulder strain Tooth abscess Surgical History History of tonsillectomy Family History Other No significant family history Social History Smoking Status: Never smoker alcohol intake: never current occupational status: employed Travel in the last 8 weeks: None Have you lived/traveled outside [place] in past 30 days?: No Contact w/someone who lives/traveled outside [place] past 30 days?: No Exposure to someone with infectious disease in past 14 days?: No Do you have a fever (greater than 100.4 F or 38 C)?: No Have you tested positive for COVID-19: No Exposed to someone with COVID-19 in past 14 days?: No Do you have a sore throat?: No Do you have a cough?: No Do you have any weakness?: No Do you have any diarrhea?: No Are you experiencing any unusual bleeding?: No Do you have any muscle aches/pain?: No Do you have any abdominal pain?: No Are you experiencing loss of taste or smell?: No ROS Obtained: Yes All systems reviewed & no additional complaints except as documented Constitutional Constitutional: Denies chills, Denies fever(s) and Reports poor appetite ENT Ears, Nose, Mouth, and Throat: Denies dizziness and Denies sore throat Cardiovascular Cardiovascular: Denies dyspnea Respiratory Respiratory: Denies chest congestion, Denies cough and Denies dyspnea Gastrointestinal Gastrointestingal: Reports as per HPI Musculoskeletal Musculoskeletal: Denies arthralgias Integumentary/Breasts Skin/Breast: Denies rash Neurologic Neurologic: Denies dizziness Physical Exam General General appearance: alert and in no apparent distress Head Head exam: atraumatic and normocephalic Eye Eye exam: Present normal appearance, PERRL and EOMI ENT ENT exam: Present normal exam, normal oropharynx, mucous membranes moist, TM's normal bilaterally and normal external ear exam Neck Neck exam: Present normal inspection, full ROM and trachea midline; Absent tenderness, meningismus or lymphadenopathy Chest Chest inspection: Present normal inspection and symmetric chest wall rise; Absent tenderness, rash or abscess Respiratory Respiratory exam: Present normal lung sounds bilaterally; Absent respiratory distress, wheezes or stridor Cardiovascular Cardiovascular exam: Present regular rate and normal rhythm; Absent irregular rhythm, systolic murmur, diastolic murmur or JVD Abdominal Exam Abdominal exam: Present soft and hyperactive bowel sounds; Absent distention, tenderness, guarding, rebound, rigidity, psoas sign, obturator sign, heel tap sign, Zacarias's sign, Rovsing's sign or tenderness at McBurney's Point Extremities Exam Extremities exam: Present normal inspection and full ROM; Absent tenderness Back Exam Back exam: Present normal inspection and full ROM; Absent tenderness, CVA tenderness (R) or CVA tenderness (L) Neurological Exam Neurological exam: Present alert, oriented X3 and CN II-XII intact Psychiatric Psychiatric exam: Present normal affect and normal mood Skin Skin exam: Present warm, dry, intact and normal color Lymphatic Lymphatic Findings: no adenopathy Medical Decision Making Medical Records Medical records reviewed: No I reviewed the patient's medical records. Screening: Per USPSTF and CDC recommendations, given the prevalence of disease in our region, it is our hospital?s policy to screen for HIV and viral Hepatitis for all patients aged 18 and over and those with ongoing risk factors. Thom Inquiry Pt receiving controlled substance: No Lab Data Lab results reviewed: Yes I reviewed the patient's lab results.
[2024-08-19 13:48] VITALS: BP 112/69; PULSE 86; RESP 18; TEMP 36.8; O2SAT 97; BMI 20.7
[2024-08-19 14:16] VITALS: BP 112/69; PULSE 86; RESP 18; TEMP 36.8
== END 2024-08-19 14:21 | disposition home or self-care (01) ==
PROVIDERS: Emergency Provider Nurse Practitioner Family; PCP Family Medicine
DX: K52.9 Noninfective gastroenteritis and colitis, unspecified (principal)
CPT/HCPCS: 99212; G0381

== ENCOUNTER 2024-10-05 12:56 | Emergency (ER) | payer BC, SELFPAY ==
--- NOTE | 2024-10-05 13:00 | HMH.EDGENADL ---
Discharge Plan Disposition Patient Disposition: Home, Self-Care Condition: Good Prescriptions Prescriptions: New ondansetron 4 mg tablet,disintegrating 4 mg PO QID PRN (Reason: nausea and vomiting) Qty: 10 0RF amoxicillin-pot clavulanate 875-125 mg tablet 1 tab PO BID Qty: 20 0RF No Action ondansetron 4 mg Tablet,Disintegrating 4 mg PO Q8H PRN (Reason: Nausea) Qty: 12 0RF hydroxyzine HCl 25 mg tablet 25 mg PO DAILY Patient Comments: TAKE ONE TABLET BY MOUTH EVERY 8 HOURS NEEDED FOR panic attacks venlafaxine 75 mg capsule,extended release 24hr 75 mg PO DAILY Patient Comments: TAKE ONE CAPSULE BY MOUTH EVERY DAY WITH FOOD famotidine 40 mg tablet 40 mg PO DAILY 30 Days Qty: 30 0RF ondansetron 4 mg Tablet,Disintegrating 4 mg PO Q8H PRN (Reason: Nausea) Qty: 12 0RF Referrals Follow up/Referrals: Sebastian Chisholm MD [Primary Care Provider] - See instructions Activity Restrictions/Add. Instructions Additional Instructions/Restrictions: I have sent in antibiotics and antinausea medication into your pharmacy. Please take till they are gone. Please follow-up with your dentist as soon as possible for tooth extraction. If you have any worsening signs or symptoms return to the ER as needed. Clinical Impressions Clinical Impression: Dental infection, Dental caries Stand Alone Forms Stand Alone Forms: Work/School Release Print Language Print Language: Malay Discharge ED Provider: Seth Tavares General Adult HPI <RAHUL Burgess - Last Filed: 10/05/24 14:34> General Chief complaint: Dental/Oral Stated complaint: poss. abcessed tooth w/ pain right side Time Seen by Provider: 10/05/24 12:59 History of Present Illness HPI narrative: Patient presents for right lower tooth pain. Patient states that he has had several days of right lower molar pain. He reports it hurts to bite and chew. He denies fever chills hemoptysis hematochezia melena nausea vomiting diarrhea. Patient does have a dentist but is unable to get into them immediately as presented to the ER for evaluation. Related Data Home Medications ?Medication ?Instructions ?Recorded ?Confirmed hydroxyzine HCl 25 mg tablet 25 mg PO DAILY 01/07/24 08/19/24 venlafaxine 75 mg capsule,extended 75 mg PO DAILY 06/29/24 08/19/24 release 24 hr Previous Rx's ?Medication ?Instructions ?Recorded famotidine 40 mg tablet 40 mg PO DAILY 30 days #30 tabs 06/29/24 ondansetron 4 mg disintegrating 4 mg PO Q8H PRN Nausea #12 tabs 06/29/24 tablet ondansetron 4 mg disintegrating 4 mg PO Q8H PRN Nausea #12 tabs 08/19/24 tablet amoxicillin 875 mg-potassium 1 tab PO BID #20 tabs 10/05/24 clavulanate 125 mg tablet ondansetron 4 mg disintegrating 4 mg PO QID PRN nausea and 10/05/24 tablet vomiting #10 tabs Allergies Allergy/AdvReac Type Severity Reaction Status Date / Time No Known Allergies Allergy Verified 05/18/24 15:15 [facility] <RAHUL Burgess - Last Filed: 10/05/24 14:34> [facility] Disclaimer: The information contained in this section may have been updated after the patient was seen, as this information can be updated by other users. Medical History Abdominal pain Dental infection Dental caries Fracture of tooth Anxiety Palpitations Hypomagnesemia Hypokalemia Nausea Constipation Anxiety Low back pain Welders' keratitis of both eyes Strep throat UV keratitis Left shoulder strain Tooth abscess Surgical History History of tonsillectomy Family History Other No significant family history Social History Smoking Status: Never smoker alcohol intake: never current occupational status: employed Travel in the last 8 weeks: None Have you lived/traveled outside US in past 30 days?: No Contact w/someone who lives/traveled outside [place] past 30 days?: No Exposure to someone with infectious disease in past 14 days?: No Do you have a fever (greater than 100.4 F or 38 C)?: No Have you tested positive for COVID-19: No Exposed to someone with COVID-19 in past 14 days?: No Do you have a sore throat?: No Do you have a cough?: No Do you have any weakness?: No Do you have any diarrhea?: No Are you experiencing any unusual bleeding?: No Do you have any muscle aches/pain?: No Do you have any abdominal pain?: No Are you experiencing loss of taste or smell?: No Other Medical History Have you received the Flu Vaccine for this season: No Have you received the Pneumonia Vaccine: No <RAHUL Burgess - Last Filed: 10/05/24 14:34> ROS Obtained: Yes Systems reviewed as appropriate & no additional complaints except as documented Physical Exam <RAHUL Burgess - Last Filed: 10/05/24 14:34> General General appearance: alert and in no apparent distress Respiratory Respiratory exam: Present normal lung sounds bilaterally Cardiovascular Cardiovascular exam: Present regular rate Neurological Exam Neurological exam: Present alert and oriented X3 Medical Decision Making <RAHUL Burgess - Last Filed: 10/05/24 14:34> Medical Records Medical records reviewed: Yes I reviewed the patient's medical records. Screening: Per USPSTF and CDC recommendations, given the prevalence of disease in our region, it is our hospital?s policy to screen for HIV and viral Hepatitis for all patients aged 18 and over and those with ongoing risk factors. Thom Inquiry Pt receiving controlled substance: No Vital Signs: 10/05/24 13:02 10/05/24 14:03 Temperature 98.1 F 98.4 F Temperature Source Oral Oral Pulse Rate 78 Pulse Rate [Radial] 83 Respiratory Rate 16 18 Blood Pressure 132/89 Blood Pressure [Right Arm] 126/79 Blood Pressure Mean [Right Arm] 94 Blood Pressure Source Automatic Cuff Blood Pressure Source [Right Arm] Automatic Cuff Blood Pressure Position Sitting Blood Pressure Position [Right Arm] Sitting 02 Sat by Pulse Oximetry 98 Oxygen Delivery Method Room Air Room Air Orders (Tests/Meds): ED MEDICATIONS Discontinued Medications Generic Name Dose Route Start Last Admin Trade Name Freq PRN Reason Stop Dose Admin Amoxicillin/Clavulanate Potassium 1 each 10/05/24 13:51 10/05/24 13:54 Amoxicillin/Clavulanate Potassium 875/125mg Tablet PO 10/05/24 13:52 1 each ONCE ONE Administration Lidocaine HCl 15 ml 10/05/24 13:25 10/05/24 13:37 Lidocaine 2% Viscous Jigna 15ml Udc PO 10/05/24 13:26 15 ml ONCE ONE Administration Medical Decision Narrative: In summary patient is a 29-year-old male who presents to the emergency department for evaluation of dental pain. Patient is hemodynamically stable upon arrival, afebrile. Physical exam is remarkable for dental caries but specifically in the area of concern in the right lower rear molar patient has a necrotic appearing tooth however there is no significant abscess no tongue deviation no Rosa's angina. He has some erythema at the gingival border in the inner portion of his rearmost molar but no fluctuance or skin breakdown. Patient has no external swelling or cellulitis and no cervical lymphadenopathy or submental lymphadenopathy. Posterior pharynx is patent voice caliber is normal. Differential diagnosis includes cellulitis versus developing abscess. Initial workup was considered with labs and imaging however patient has no red flags including tongue deviation submandibular swelling cervical lymphadenopathy etc thus it is deferred. Initial interventions include dental balls. I had a shared decision-making discussion with the patient regarding his MULLEN findings and recommendations and via patient directed decision making and discharge patient is comfortable going home with dental balls a prescription for Augmentin and close follow-up with his dentist. Thus patient will be prescribed Augmentin with first dose given here in the remainder sent to his pharmacy. Patient given strict return precautions. <Seth Tavares MD - Last Filed: 10/05/24 14:52> Vital Signs: 10/05/24 13:02 10/05/24 14:03 Temperature 98.1 F 98.4 F Temperature Source Oral Oral Pulse Rate 78 Pulse Rate [Radial] 83 Respiratory Rate 16 18 Blood Pressure 132/89 Blood Pressure [Right Arm] 126/79 Blood Pressure Mean [Right Arm] 94 Blood Pressure Source Automatic Cuff Blood Pressure Source [Right Arm] Automatic Cuff Blood Pressure Position Sitting Blood Pressure Position [Right Arm] Sitting 02 Sat by Pulse Oximetry 98 Oxygen Delivery Method Room Air Room Air Orders (Tests/Meds): ED MEDICATIONS Discontinued Medications Generic Name Dose Route Start Last Admin Trade Name Freq PRN Reason Stop Dose Admin Amoxicillin/Clavulanate Potassium 1 each 10/05/24 13:51 10/05/24 13:54 Amoxicillin/Clavulanate Potassium 875/125mg Tablet PO 10/05/24 13:52 1 each ONCE ONE Administration Lidocaine HCl 15 ml 10/05/24 13:25 10/05/24 13:37 Lidocaine 2% Viscous Ijgna 15ml Udc PO 10/05/24 13:26 15 ml ONCE ONE Administration Medical Decision Narrative: In summary patient is a 29-year-old male who presents to the emergency department for evaluation of dental pain. Patient is hemodynamically stable upon arrival, afebrile. Physical exam is remarkable for dental caries but specifically in the area of concern in the right lower rear molar patient has a necrotic appearing tooth however there is no significant abscess no tongue deviation no Rosa's angina. He has some erythema at the gingival border in the inner portion of his rearmost molar but no fluctuance or skin breakdown. Patient has no external swelling or cellulitis and no cervical lymphadenopathy or submental lymphadenopathy. Posterior pharynx is patent voice caliber is normal. Differential diagnosis includes cellulitis versus developing abscess. Initial workup was considered with labs and imaging however patient has no red flags including tongue deviation submandibular swelling cervical lymphadenopathy etc thus it is deferred. Initial interventions include dental balls. I had a shared decision-making discussion with the patient regarding his MULLEN findings and recommendations and via patient directed decision making and discharge patient is comfortable going home with dental balls a prescription for Augmentin and close follow-up with his dentist. Thus patient will be prescribed Augmentin with first dose given here in the remainder sent to his pharmacy. Patient given strict return precautions. I was consulted by the KAN, and we discussed the complexity of the problems being addressed. I approved the treatment and management plan for this patient's care in the Emergency Department, thus performing a substantive portion of the medical decision making. Seth Tavares MD Critical Care <RAHUL Burgess - Last Filed: 10/05/24 14:34> Critical Care Time Critical Care Time: No
[2024-10-05 13:02] VITALS: BP 126/79; PULSE 83; RESP 16; TEMP 36.7; O2SAT 98
[2024-10-05] MEDS: LIDOCAINE 2% VISCOUS SOL 15ML UDC 15 ML PO (13:37)
--- NOTE | 2024-10-05 13:40 | PC.NURSE ---
I rounded on the pt and educated on how to use dental balls. pt verbalized his understanding. no new complaints at this time. no needs voiced. call reyes in reach.
[2024-10-05] MEDS: AMOXICILLIN/CLAVULANATE POTASSIUM 875/125MG TABLET 1 EACH PO (13:54)
[2024-10-05 14:03] VITALS: BP 132/89; PULSE 78; RESP 18; TEMP 36.9; O2SAT 99
== END 2024-10-05 14:04 | disposition home or self-care (01) ==
PROVIDERS: Emergency Provider Emergency Medicine; PCP Family Medicine
DX: K04.7 Periapical abscess without sinus (principal); K02.9 Dental caries, unspecified; K08.89 Other specified disorders of teeth and supporting structures
CPT/HCPCS: 99283